=== PATIENT | female | born 1965 | race Two or more races ===

== ENCOUNTER 2018-04-27 12:36 | Inpatient (IN) | payer MEDICARE, MEDICAID ==
[~2018-04-27] VITALS: Ht 165.1 cm; Wt 81.6 kg
[2018-04-27] MEDS ORDERED: PIPERACILLIN/TAZ 3.375G PREMIX 50 ML IV ONE (13:45)
[2018-04-27] MEDS ORDERED: VANCOMYCIN 1 G PREMIX 200 ML IV ONE (13:45)
[2018-04-27 13:56] LABS: BASOPHILS % 0.3 % (0.0-2.0); EOSINOPHILS % 7.7 % (0.0-5.0); HEMATOCRIT. 28.5 % (36.0-48.0); HEMOGLOBIN. 9.2 g/dL (12.0-16.0); MEAN CORPUSCULAR HEMOGLOBIN 28.3 pg (28.0-32.0); MEAN CORPUSCULAR VOLUME 87.8 fL (81.0-99.0); MONOCYTES % 7.9 % (2.0-8.0); NEUTROPHILS % 75.1 % (40.0-76.0); PLATELET 86 x1000/uL (130-400); RED BLOOD CELL COUNT 3.25 mill/uL (4.2-5.4); RED CELL DISTRIBUTION WIDTH 16.9 % (11.6-14.6)
[2018-04-27 14:02] LABS: CHLORIDE 103 mEq/L (98-107)
[2018-04-27] MEDS: ACETAMINOPHEN 325MG TABLET PO PRN (21:15)
[2018-04-28] MEDS: ACETAMINOPHEN 325MG TABLET PO PRN ×2 (06:01→17:05)
[2018-04-28 09:50] VITALS: BP 158/87
[2018-04-28] MEDS ORDERED: NIFE60TA64 MT (14:49)
[2018-04-28] MEDS ORDERED: AMLO10TA80 MT (14:49)
[2018-04-28] MEDS ORDERED: OMEP40CA34 MT (14:49)
[2018-04-28] MEDS ORDERED: NEPVIT MT (14:49)
[2018-04-28] MEDS ORDERED: CINA30 MT (14:49)
[2018-04-28] MEDS ORDERED: LOSA1TAB40 MT (14:49)
[2018-04-28] MEDS ORDERED: TERA1CAP7 MT (14:49)
[2018-04-28] MEDS ORDERED: SEVE800T8 MT (14:49)
[2018-04-28] MEDS ORDERED: CARV12.545 MT (14:49)
[2018-04-28] MEDS ORDERED: ONDANSETRON HCL 4MG/2ML INJ IV PRN (15:15)
[2018-04-28] MEDS ORDERED: ENOXAPARIN 40MG/0.4ML SYR SUBCUT SCH (15:15)
[2018-04-28] MEDS ORDERED: DOCUSATE SODIUM 100MG CAPSULE PO PRN (15:15)
[2018-04-28] MEDS ORDERED: LOPERAMIDE 2 MG/10 ML UDC PO NR (15:30)
[2018-04-28 16:00] VITALS: BP 168/88
[2018-04-28] MEDS: CLONIDINE 0.1MG TABLET PO PRN (17:53)
[2018-04-28 20:00] VITALS: BP 136/83
[2018-04-29] VITALS: BP 146/77
[2018-04-29 04:00] VITALS: BP 153/83
[2018-04-29] MEDS: ACETAMINOPHEN 325MG TABLET PO PRN (05:13)
[2018-04-29 07:10] LABS: HEMATOCRIT. 29.7 % (36.0-48.0); HEMOGLOBIN. 9.8 g/dL (12.0-16.0); MEAN CORPUSCULAR HEMOGLOBIN 28.7 pg (28.0-32.0); MEAN CORPUSCULAR VOLUME 86.8 fL (81.0-99.0); MEAN PLATELET VOLUME 8.2 fl (7.4-10.4); PLATELET 69 x1000/uL (130-400); RED BLOOD CELL COUNT 3.42 mill/uL (4.2-5.4); RED CELL DISTRIBUTION WIDTH 16.8 % (11.6-14.6)
[2018-04-29 07:29] LABS: CHLORIDE 104 mEq/L (98-107)
[2018-04-29 08:00] VITALS: BP 150/83
[2018-04-29 08:41] LABS: PLATELET ESTIMATE DECREASED
[2018-04-29] MEDS: CLONIDINE 0.1MG TABLET PO PRN (10:22)
[2018-04-29] MEDS: AMLODIPINE 10MG TABLET PO SCH (10:22)
[2018-04-29 12:00] VITALS: BP 140/70
[2018-04-29] MEDS ORDERED: VANCOMYCIN 1500MG in DEXTROSE 5% WATER 250ML IV NR (12:00)
[2018-04-29] MEDS: PIPERACILLIN/TAZ 2.25G PREMIX 50 ML IV SCH ×2 (15:12→23:27)
[2018-04-29 18:00] VITALS: BP 142/72
[2018-04-29 20:00] VITALS: BP 160/90
[2018-04-29] MEDS ORDERED: FILGRASTIM-TBO 300 MCG/0.5 ML SYRINGE SQ SCH (21:00)
[2018-04-30] VITALS (8 sets, daily range): BP systolic 140–196; BP diastolic 71–95
[2018-04-30 07:58] LABS: HEMATOCRIT. 29.2 % (36.0-48.0); HEMOGLOBIN. 9.5 g/dL (12.0-16.0); MEAN CORPUSCULAR HEMOGLOBIN 28.9 pg (28.0-32.0); MEAN CORPUSCULAR VOLUME 88.7 fL (81.0-99.0); MEAN PLATELET VOLUME 8.4 fl (7.4-10.4); PLATELET 71 x1000/uL (130-400); RED BLOOD CELL COUNT 3.29 mill/uL (4.2-5.4); RED CELL DISTRIBUTION WIDTH 16.6 % (11.6-14.6)
[2018-04-30] MEDS: AMLODIPINE 10MG TABLET PO SCH ×3 (09:00→12:27)
[2018-04-30] MEDS: PIPERACILLIN/TAZ 2.25G PREMIX 50 ML IV SCH (12:26)
[2018-04-30] MEDS: ACETAMINOPHEN 325MG TABLET PO PRN ×2 (12:26→20:09)
[2018-04-30] MEDS: CLONIDINE 0.1MG TABLET PO PRN (20:09)
[2018-05-01] VITALS (7 sets, daily range): BP systolic 124–167; BP diastolic 59–97
[2018-05-01] MEDS: PIPERACILLIN/TAZ 2.25G PREMIX 50 ML IV SCH ×2 (00:23→12:57)
[2018-05-01 05:07] LABS: PLATELET ESTIMATE DECREAS
[2018-05-01] MEDS: AMLODIPINE 10MG TABLET PO SCH (07:57)
[2018-05-01] MEDS: HYDRALAZINE HCL 25MG TABLET PO SCH ×3 (07:58→21:06)
[2018-05-01 09:10] LABS: BASOPHILS % 0.2 % (0.0-2.0); EOSINOPHILS % 4.8 % (0.0-5.0); HEMOGLOBIN. 9.4 g/dL (12.0-16.0); LYMPHOCYTES % 8.1 % (20.0-50.0); MEAN CORPUSCULAR HEMOGLOBIN 28.5 pg (28.0-32.0); MEAN CORPUSCULAR VOLUME 88.2 fL (81.0-99.0); MEAN PLATELET VOLUME 8.7 fl (7.4-10.4); MONOCYTES % 5.3 % (2.0-8.0); NEUTROPHILS % 81.6 % (40.0-76.0); PLATELET 74 x1000/uL (130-400); RED BLOOD CELL COUNT 3.29 mill/uL (4.2-5.4)
[2018-05-01] MEDS: CLONIDINE 0.1MG TABLET PO PRN (18:06)
[2018-05-02] VITALS: BP 134/73
[2018-05-02] MEDS: PIPERACILLIN/TAZ 2.25G PREMIX 50 ML IV SCH ×2 (00:01→11:10)
[2018-05-02 04:00] VITALS: BP 141/61
[2018-05-02] MEDS: HYDRALAZINE HCL 25MG TABLET PO SCH (05:01)
[2018-05-02 07:34] LABS: BASOPHILS % 0.2 % (0.0-2.0); EOSINOPHILS % 6.2 % (0.0-5.0); HEMATOCRIT. 24.2 % (36.0-48.0); MEAN CORPUSCULAR HEMOGLOBIN 28.5 pg (28.0-32.0); MEAN CORPUSCULAR VOLUME 86.7 fL (81.0-99.0); MEAN PLATELET VOLUME 8.3 fl (7.4-10.4); MONOCYTES % 6.6 % (2.0-8.0); PLATELET 70 x1000/uL (130-400); RED BLOOD CELL COUNT 2.79 mill/uL (4.2-5.4)
[2018-05-02 08:00] VITALS: BP 166/85
[2018-05-02] MEDS: AMLODIPINE 10MG TABLET PO SCH (11:10)
[2018-05-02 12:00] VITALS: BP 160/90
[2018-05-02 12:10] VITALS: BP 160/80
[2018-05-02] MEDS ORDERED: EPOETIN ALFA 10000UNITS/ML VIAL SUBCUT SCH (21:00)
== END 2018-05-02 14:25 | disposition home or self-care (01) | DRG 640 ==
LOC: ER 12:36 → 8WST 15:18 → EDBEDREQ 15:19 → EDBEDREQSVC 15:19 → ENRESERV 04-28 08:53
PROVIDERS: ADMIT Hospitalist; ATTEND Hospitalist
PROC: 5A1D70Z Performance of Urinary Filtration, Intermittent, Less than 6 Hours Per Day (ICD-10-PCS; principal; 2018-04-28)
PROC: 5A1D70Z Performance of Urinary Filtration, Intermittent, Less than 6 Hours Per Day (ICD-10-PCS; 2018-04-29)
PROC: 5A1D70Z Performance of Urinary Filtration, Intermittent, Less than 6 Hours Per Day (ICD-10-PCS; 2018-05-02)
DX: E87.5 Hyperkalemia (principal); N18.6 End stage renal disease; E43 Unspecified severe protein-calorie malnutrition; I12.0 Hypertensive chronic kidney disease with stage 5 chronic kidney disease or end stage renal disease; D64.9 Anemia, unspecified; R19.7 Diarrhea, unspecified; D72.819 Decreased white blood cell count, unspecified; D69.6 Thrombocytopenia, unspecified; Z99.2 Dependence on renal dialysis; Z68.30 Body mass index [BMI] 30.0-30.9, adult
CPT/HCPCS: 36415; 71045; 80048; 80202; 93005; 93970; 96365; 96366; 99291; J1442; J2543; J3370; J7050; J7060